=== PATIENT | male | born 1985 | race Hispanic/Latino ===

== ENCOUNTER 2018-05-24 09:45 | Emergency (ER) | payer SELFPAY ==
--- NOTE | 2018-05-24 11:24 | RAD REPORT ---
EXAM DESCRIPTION: RAD - Foot Right 3 View - 05/24/2018 10:59 am CLINICAL HISTORY: Pain;Swelling COMPARISON: No comparisons FINDINGS: Lucency is seen at the base of the right fourth metatarsal likely representing fracture. T here is also subtle widening of the intertarsal space between the base of the first and second metata rsals with subtle lucency at the base of the second metatarsal which could indicate Lisfranc fracture . Moderate soft tissue swelling is present along the dorsum of the forefoot. Findings were discussed with MALCOM Torres in the ER 11:12 a.m. 05/24/2018 by telephone.
--- NOTE | 2018-05-24 11:37 | ER ---
Nurse's Notes [facility] Name: Adolfo Franco Age: 33 yrs Sex: Male : 1985 Arrival Date: 05/24/2018 Time: 09:46 Bed 15 Private MD: None, None Diagnosis: Nondisplaced fracture of fourth metatarsal bone, right foot Presentation: 05/24 09:57 Presenting complaint: Patient states: R foot pain, injury, swelling and bruising that ss began 05/22/18 after patient believes somebody fell onto it during [place]. Pt doesn't quite remember the exact injury as he had been drinking. Transition of care: patient was not received from another setting of care. Onset of symptoms was May 22, 2018. Risk Assessment: Do you want to hurt yourself or someone else? Patient reports no desire to harm self or others. Initial Sepsis Screen: Does the patient meet any 2 criteria? No. Patient's initial sepsis screen is negative. Does the patient have a suspected source of infection? No. Patient's initial sepsis screen is negative. Care prior to arrival: None. 09:57 Method Of Arrival: Ambulatory ss 09:57 Acuity: MIKAELA 4 ss Historical: - Allergies: 09:58 No Known Allergies; ss - Home Meds: 09:58 None [Active]; ss - PMHx: 09:58 Anxiety; Asthma; Back pain; Seizures; ss - PSHx: 09:58 None; ss - Immunization history:: Adult Immunizations up to date. - Social history:: Smoking status: Patient uses tobacco products, denies chronic smoking, but will smoke occasionally. - Ebola Screening: : Patient denies exposure to infectious person Patient denies travel to an Ebola-affected area in the 21 days before illness onset. Screenin:26 Abuse screen: Denies threats or abuse. Denies injuries from another. Nutritional hb screening: No deficits noted. Tuberculosis screening: No symptoms or risk factors identified. Fall Risk None identified. Assessment: 10:22 General: Appears in no apparent distress. uncomfortable, Behavior is calm, cooperative. hb Pain: Pain currently is 8 out of 10 on a pain scale. Neuro: Level of Consciousness is awake, alert, obeys commands, Oriented to person, place, time, situation. Cardiovascular: Capillary refill < 3 seconds Patient's skin is warm and dry. RIGHT pedal pulses auscultated via doppler. Respiratory: Airway is patent Trachea midline Respiratory effort is even, unlabored, Respiratory pattern is regular, symmetrical. GI: No signs and/or symptoms were reported involving the gastrointestinal system. : No signs and/or symptoms were reported regarding the genitourinary system. EENT: No signs and/or symptoms were reported regarding the EENT system. Derm: Skin is intact, is healthy with good turgor. Musculoskeletal: bruising and moderate swelling noted to left foot, left ankle. 11:27 Reassessment: Patient appears in no apparent distress at this time. Patient and/or hb family updated on plan of care and expected duration. Pain level reassessed. Patient is alert, oriented x 3, equal unlabored respirations, skin warm/dry/pink. Vital Signs: 09:58 BP 133 / 90; Pulse 69; Resp 16; Temp 97.9(TE); Pulse Ox 99% on R/A; Weight 79.38 kg; ss Height 5 ft. 4 in. (162.56 cm); Pain 8/10; 11:27 BP 132 / 88; Pulse 66; Resp 15; Pulse Ox 100% on R/A; hb 09:58 Body Mass Index 30.04 (79.38 kg, 162.56 cm) ss ED Course: 09:46 Patient arrived in ED. sb2 09:46 None, None is Private Physician. sb2 09:58 Triage completed. ss 09:58 Arm band placed on right wrist. ss 10:03 [facility] Skelton [facility]C [facility]. kb 10:03 Cholo Sifuentes MD is Attending Physician. kb 10:22 Yue Melendez, ARSENIO is Primary Nurse. hb 10:26 Patient has correct armband on for positive identification. Bed in low position. Call hb light in reach. Side rails up X 1. 10:59 Foot Right 3 View XRAY In Process Unspecified. EDMS 11:02 X-ray completed. Portable x-ray completed in exam room. Patient tolerated procedure jb2 well. 11:50 Orthoglass splint: Posterior short lleg splint applied on right leg. capillary refill dh3 less than 3 seconds. 11:50 No provider procedures requiring assistance completed. Patient did not have IV access hb during this emergency room visit. Administered Medications: 11:58 Drug: [place] 10 mg-325 mg 1 tabs Route: PO; hb 11:58 Follow up: Response: Medication administered at discharge. hb Outcome: 11:37 Discharge ordered by . kb 11:50 Discharged to home ambulatory, with crutches. hb 11:50 Condition: stable 11:50 Discharge instructions given to patient, Instructed on discharge instructions, follow up and referral plans. medication usage, Demonstrated understanding of instructions, follow-up care, medications, Prescriptions given X 2. 11:59 Patient left the ED. hb Signatures: Dispatcher [employer] EDMS Torie Skelton, BUILDING CONSTRUCTION SUPERVISOR-C BUILDING CONSTRUCTION SUPERVISOR-CkHadley Jimenez2 Jade Navarro RN RN Yue Melendez RN RN Padma Wood 3 Marcy Chauhan2 Corrections: (The following items were deleted from the chart) 17:51 11:50 Discharge instructions given to patient, Instructed on discharge instructions, hb follow up and referral plans. medication usage, Demonstrated understanding of instructions, follow-up care, medications, Prescriptions given X 1, hb
--- NOTE | 2018-05-24 11:37 | EDPHYS ---
Physician Documentation [facility] Name: Adolfo Franco Age: 33 yrs Sex: Male : 1985 Arrival Date: 05/24/2018 Time: 09:46 Bed 15 Private MD: None, None ED Physician Cholo Sifuentes HPI: 05/24 10:20 This 33 yrs old Male presents to ER via Ambulatory with complaints of Foot kb Injury. 10:21 The patient presents with an injury, pain, that is acute, swelling, tenderness. The kb complaints affect the right foot. Context: The problem was sustained at home, the patient can partially bear weight, the patient is able to ambulate, with mild difficulty. Onset: The symptoms/episode began/occurred 2 day(s) ago. Modifying factors: The symptoms are alleviated by nothing, the symptoms are aggravated by weight bearing, movement. Associated signs and symptoms: Pertinent positives: swelling, Pertinent negatives: calf tenderness, fever, nausea, numbness, rash, tingling, vomiting, warmth, weakness. Severity of symptoms: At their worst the symptoms were moderate, in the emergency department the symptoms are unchanged. The patient has not experienced similar symptoms in the past. The patient has not recently seen a physician. Historical: - Allergies: 09:58 No Known Allergies; ss - Home Meds: 09:58 None [Active]; ss - PMHx: 09:58 Anxiety; Asthma; Back pain; Seizures; ss - PSHx: 09:58 None; ss - Immunization history:: Adult Immunizations up to date. - Social history:: Smoking status: Patient uses tobacco products, denies chronic smoking, but will smoke occasionally. - Ebola Screening: : Patient denies exposure to infectious person Patient denies travel to an Ebola-affected area in the 21 days before illness onset. ROS: 10:15 Constitutional: Negative for fever, chills, and weight loss, Cardiovascular: Negative kb for chest pain, palpitations, and edema, Respiratory: Negative for shortness of breath, cough, wheezing, and pleuritic chest pain, Abdomen/GI: Negative for abdominal pain, nausea, vomiting, diarrhea, and constipation, Skin: Negative for injury, rash, and discoloration, Neuro: Negative for headache, weakness, numbness, tingling, and seizure. 10:15 MS/extremity: Positive for injury or acute deformity, pain, swelling, tenderness, of the right foot. Exam: 10:15 Constitutional: This is a well developed, well nourished patient who is awake, alert, kb and in no acute distress. Head/Face: Normocephalic, atraumatic. Chest/axilla: Normal chest wall appearance and motion. Nontender with no deformity. No lesions are appreciated. Cardiovascular: Regular rate and rhythm with a normal S1 and S2. No gallops, murmurs, or rubs. Normal PMI, no JVD. No pulse deficits. Respiratory: Lungs have equal breath sounds bilaterally, clear to auscultation and percussion. No rales, rhonchi or wheezes noted. No increased work of breathing, no retractions or nasal flaring. Abdomen/GI: Soft, non-tender, with normal bowel sounds. No distension or tympany. No guarding or rebound. No evidence of tenderness throughout. Skin: Warm, dry with normal turgor. Normal color with no rashes, no lesions, and no evidence of cellulitis. Neuro: Awake and alert, GCS 15, oriented to person, place, time, and situation. Cranial nerves II-XII grossly intact. Motor strength 5/5 in all extremities. Sensory grossly intact. Cerebellar exam normal. Normal gait. 10:15 Musculoskeletal/extremity: Extremities: grossly normal except: noted in the right foot: pain, swelling, tenderness, ROM: no acute changes, Circulation is intact in all extremities. Sensation intact. Vital Signs: 09:58 BP 133 / 90; Pulse 69; Resp 16; Temp 97.9(TE); Pulse Ox 99% on R/A; Weight 79.38 kg; ss Height 5 ft. 4 in. (162.56 cm); Pain 8/10; 11:27 BP 132 / 88; Pulse 66; Resp 15; Pulse Ox 100% on R/A; hb 09:58 Body Mass Index 30.04 (79.38 kg, 162.56 cm) ss MDM: 10:03 Patient medically screened. kb 10:20 Data reviewed: vital signs, nurses notes. Data interpreted: Pulse oximetry: on room air kb is 99 %. Interpretation: normal. 11:35 Counseling: I had a detailed discussion with the patient and/or guardian regarding: the kb historical points, exam findings, and any diagnostic results supporting the discharge/admit diagnosis, radiology results, the need for outpatient follow up, a orthopedic surgeon, to return to the emergency department if symptoms worsen or persist or if there are any questions or concerns that arise at home. 05/24 10:14 Order name: Foot Right 3 View XRAY; Complete Time: 11:26 kb 05/24 11:28 Order name: Short Leg Splint; Complete Time: 11:55 kb 05/24 11:28 Order name: Crutches; Complete Time: 11:55 kb Administered Medications: 11:58 Drug: [place] 10 mg-325 mg 1 tabs Route: PO; 11:58 Follow up: Response: Medication administered at discharge. Disposition: 15:04 Co-signature as Attending Physician, Cholo Sifuentes MD I agree with the assessment and [facility] plan of care. Disposition: 05/24/18 11:37 Discharged to Home. Impression: Nondisplaced fracture of fourth metatarsal bone, right foot. - Condition is Stable. - Discharge Instructions: Metatarsal Fracture. - Prescriptions for Tylenol- Codeine #3 300-30 mg Oral Tablet - take 2 tablets by ORAL route every 6 hours As needed; 16 tablet. Diclofenac Sodium 75 mg Oral Tablet, Delayed Release (E.C.) - take 1 tablet by ORAL route 2 times per day As needed; 30 tablet. - Medication Reconciliation Form, Thank You Letter, Antibiotic Education, Prescription Opioid Use form. - Follow up: Emergency Department; When: As needed; Reason: Worsening of condition. Follow up: Private Physician; When: 2 - 3 days; Reason: Recheck today's complaints, Continuance of care, Re-evaluation by your physician. Signatures: Dispatcher [employer] [facility] Torie Skelton, MALCOM-C SECURITY MANAGER-Cholo Watkins MD MD cha Smirch, Shelby, RN RN ss Baxter, Heather, RN RN Corrections: (The following items were deleted from the chart) 11:59 11:37 05/24/2018 11:37 Discharged to Home. Impression: Nondisplaced fracture of fourth hb metatarsal bone, right foot. Condition is Stable. Forms are Medication Reconciliation Form, Thank You Letter, Antibiotic Education, Prescription Opioid Use. Follow up: Emergency Department; When: As needed; Reason: Worsening of condition. Follow up: Private Physician; When: 2 - 3 days; Reason: Recheck today's complaints, Continuance of care, Re-evaluation by your physician. kb
[2018-05-24] MEDS ORDERED: HYDROCODONE/APAP 10/325 TAB ONE (12:04)
[2018-05-24 12:24] VITALS: TEMP 97.9
[2018-05-24 12:25] VITALS: BP 132/88; O2SAT 100
== END 2018-05-24 11:59 | disposition home or self-care (01) ==
LOC: ER 09:45
DX: S92.341A Displaced fracture of fourth metatarsal bone, right foot, initial encounter for closed fracture (principal); X58.XXXA Exposure to other specified factors, initial encounter; Y92.9 Unspecified place or not applicable
CPT/HCPCS: 99284

== ENCOUNTER 2018-06-29 11:16 | Emergency (ER) | payer SELFPAY ==
--- NOTE | 2018-06-29 12:54 | ER ---
Nurse's Notes [facility] Name: Adolfo Franco Age: 33 yrs Sex: Male : 1985 Arrival Date: 06/29/2018 Time: 11:17 Bed 18 Private MD: Unknown, Unknown Diagnosis: Pain in right foot Presentation: 06/29 11:19 Presenting complaint: Patient states: this past May 24 or , i had a fractured R hj foot and was here for it; was told it will heal for 6 weeks, i need a work release form to get back to work; no other complaints;. Transition of care: patient was not received from another setting of care. Onset of symptoms was June 29, 2018. Risk Assessment: Do you want to hurt yourself or someone else? Patient reports no desire to harm self or others. Initial Sepsis Screen: Does the patient meet any 2 criteria? No. Patient's initial sepsis screen is negative. Does the patient have a suspected source of infection? No. Patient's initial sepsis screen is negative. Care prior to arrival: None. 11:19 Method Of Arrival: Ambulatory 11:19 Acuity: MIKAELA 5 hj Triage Assessment: 11:22 General: Appears in no apparent distress. uncomfortable, Behavior is calm, cooperative, hj appropriate for age. Pain: Complains of pain in right foot. Musculoskeletal: Reports pain in right foot. 13:02 Injury Description: Bruise sustained to right foot. bp Historical: - Allergies: 11:21 No Known Allergies; hj - Home Meds: 11:21 acetaminophen-codeine 300-60 mg Oral tab 1 tab every 6 hours for Pain [Active]; hj naproxen 500 mg Oral TbEC 1 tab 2 times per day [Active]; prednisone 20 mg Oral tab once daily [Active]; - PMHx: 11:21 Anxiety; Asthma; Back pain; Seizures; hj - PSHx: 11:21 None; hj - Immunization history:: Adult Immunizations up to date. - Social history:: Smoking status: Patient uses tobacco products, Patient uses alcohol. - Ebola Screening: : Patient negative for fever greater than or equal to 101.5 degrees Fahrenheit, and additional compatible Ebola Virus Disease symptoms Patient denies exposure to infectious person Patient denies travel to an Ebola-affected area in the 21 days before illness onset. Screenin:22 Abuse screen: Denies threats or abuse. Denies injuries from another. Nutritional hj screening: No deficits noted. Tuberculosis screening: No symptoms or risk factors identified. Fall Risk None identified. Assessment: 12:30 General: Appears in no apparent distress. comfortable, Behavior is calm, cooperative, bp appropriate for age. Pain: Complains of pain in right foot. Neuro: Level of Consciousness is awake, alert, obeys commands, Oriented to person, place, time, situation, Appropriate for age. Cardiovascular: No deficits noted. Respiratory: No deficits noted. GI: No signs and/or symptoms were reported involving the gastrointestinal system. : No signs and/or symptoms were reported regarding the genitourinary system. EENT: No deficits noted. Derm: No deficits noted. Musculoskeletal: Circulation, motion, and sensation intact. Range of motion: intact in all extremities. 13:01 Reassessment: PT MED SCREENED BY JOSEPHINE. bp Vital Signs: 11:22 BP 135 / 99; Pulse 74; Resp 18; Temp 98.3(TE); Pulse Ox 97% on R/A; Weight 79.38 kg; hj Height 5 ft. 4 in. (162.56 cm); Pain 4/10; 11:22 Body Mass Index 30.04 (79.38 kg, 162.56 cm) ED Course: 11:17 Patient arrived in ED. ag5 11:18 Unknown, Unknown is Private Physician. ag5 11:21 Triage completed. hj 11:22 Arm band placed on right wrist. hj 11:22 Patient has correct armband on for positive identification. Bed in low position. Call hj light in reach. Side rails up X 1. 12:31 Jet Higuera, ARSENIO is Primary Nurse. bp 12:34 Cholo Campos PA is PHCP. cp 12:35 Horace Anand MD is Attending Physician. cp 12:52 Jimbo Haider MD is Referral Physician. cp 13:02 No provider procedures requiring assistance completed. Patient did not have IV access bp during this emergency room visit. Administered Medications: No medications were administered Outcome: 12:53 Discharge ordered by . cp 13:02 Medical screen evaluation completed per provider. Patient declined treatment. bp 13:02 Condition: stable 13:02 Instructed on follow up and referral plans. 13:03 Patient left the ED. bp Signatures: Arnaldo Ma RN RN Cholo Pedro PA PA cp Peltier, Brian, RN RN bp Gaskin, Ajare ag5 Corrections: (The following items were deleted from the chart) 11:19 Acuity: MIKAELA 4 hj hj 11:22 Resp 18bpm; Pulse Ox 97% RA; Temp 98.3F Temporal; 79.38 kg; Height 5 ft. 4 in.; hj BMI: 30.0; Pain 4/10; hj
--- NOTE | 2018-06-29 12:54 | EDPHYS ---
Physician Documentation [facility] Name: Adolfo Franco Age: 33 yrs Sex: Male : 1985 Arrival Date: 06/29/2018 Time: 11:17 Bed 18 Private MD: Unknown, Unknown ED Physician Horace Anand HPI: 06/29 12:47 This 33 yrs old Male presents to ER via Ambulatory with complaints of Foot cp Injury. 12:47 The patient presents with pain, that is acute. The complaints affect the dorsum of cp right foot. Context: resulted from known fracture. Onset: The symptoms/episode began/occurred last month, [place]. Associated signs and symptoms: Pertinent negatives calf tenderness, numbness, warmth. Treatment prior to arrival includes: no previous treatment. Historical: - Allergies: 11:21 No Known Allergies; hj - Home Meds: 11:21 acetaminophen-codeine 300-60 mg Oral tab 1 tab every 6 hours for Pain [Active]; hj naproxen 500 mg Oral TbEC 1 tab 2 times per day [Active]; prednisone 20 mg Oral tab once daily [Active]; - PMHx: 11:21 Anxiety; Asthma; Back pain; Seizures; hj - PSHx: 11:21 None; hj - Immunization history:: Adult Immunizations up to date. - Social history:: Smoking status: Patient uses tobacco products, Patient uses alcohol. - Ebola Screening: : Patient negative for fever greater than or equal to 101.5 degrees Fahrenheit, and additional compatible Ebola Virus Disease symptoms Patient denies exposure to infectious person Patient denies travel to an Ebola-affected area in the 21 days before illness onset. ROS: 12:48 Eyes: Negative for injury, pain, redness, and discharge. cp 12:48 Constitutional: Negative for body aches, chills, fever, poor PO intake. 12:48 ENT: Negative for drainage from ear(s), ear pain, sore throat, difficulty swallowing, difficulty handling secretions. 12:48 Respiratory: Negative for cough, shortness of breath, wheezing. 12:48 Abdomen/GI: Negative for abdominal pain, nausea, vomiting, and diarrhea. 12:48 MS/extremity: Positive for pain, tenderness, of the dorsum of right foot, Negative for decreased range of motion, deformity, paresthesias. 12:48 Skin: Negative for cellulitis, rash. 12:48 Neuro: Negative for altered mental status, headache, weakness. 12:48 All other systems are negative. Exam: 12:49 Head/Face: Normocephalic, atraumatic. cp 12:49 Constitutional: The patient appears in no acute distress, alert, awake, non-toxic, well developed, well nourished. 12:49 Eyes: Periorbital structures: appear normal, Conjunctiva: normal, no exudate, no injection, Lids and lashes: appear normal, bilaterally. 12:49 ENT: External ear(s): are unremarkable, Nose: is normal, Mouth: Lips: moist, Oral mucosa: moist, Posterior pharynx: Airway: no evidence of obstruction, patent. 12:49 Chest/axilla: Inspection: normal. 12:49 Cardiovascular: Rate: normal, Rhythm: regular. 12:49 Respiratory: the patient does not display signs of respiratory distress, Respirations: normal, no use of accessory muscles, no retractions, no splinting, no tachypnea. 12:49 Musculoskeletal/extremity: Extremities: grossly normal except: noted in the dorsum of right foot: pain, swelling, tenderness, Perfusion: the extremity is normally perfused throughout, Sensation intact. 12:49 Skin: cellulitis, is not appreciated, no rash present. Vital Signs: 11:22 BP 135 / 99; Pulse 74; Resp 18; Temp 98.3(TE); Pulse Ox 97% on R/A; Weight 79.38 kg; hj Height 5 ft. 4 in. (162.56 cm); Pain 4/10; 11:22 Body Mass Index 30.04 (79.38 kg, 162.56 cm) hj MDM: 12:35 Patient medically screened. cp 12:45 Differential diagnosis: dislocation, closed fracture, contusion. cp 12:52 Data reviewed: vital signs, nurses notes. cp Administered Medications: No medications were administered Disposition: 06/30 12:40 Co-signature as Attending Physician, Horace Anand MD I agree with the assessment and wa plan of care. Disposition: 06/29/18 12:53 Discharged to Home as Medical Screen. Impression: Pain in right foot. - Condition is Stable. - Discharge Instructions: Foot Pain. - Medication Reconciliation Form, Thank You Letter, Antibiotic Education, Prescription Opioid Use form. - Follow up: Jimbo Haider MD; When: 1 - 2 days; Reason: right foot pain. - Problem is an ongoing problem. - Symptoms are unchanged. Signatures: Dispatcher [employer] [facility] Arnaldo Ma, RN RN Cholo Pedro PA PA cp Horace Anand MD MD wa Peltier, Brian, RN RN bp Corrections: (The following items were deleted from the chart) 02 12:54 12:53 06/29/2018 12:53 Discharged to Home. Impression: Pain in right foot. Condition is cp Stable. Forms are Medication Reconciliation Form, Thank You Letter, Antibiotic Education, Prescription Opioid Use. Follow up: Dr. Jimbo Haider; When: 1 - 2 days; Reason: right foot pain. Problem is an ongoing problem. Symptoms are unchanged. cp 12:55 12:38 Foot Right 3 View+RAD.RAD.BRZ ordered. [facility] EDTX 13:03 12:54 06/29/2018 12:53 Discharged to Home as Medical Screen. Impression: Pain in right bp foot. Condition is Stable. Discharge Instructions: Foot Pain. Forms are Medication Reconciliation Form, Thank You Letter, Antibiotic Education, Prescription Opioid Use. Follow up: Dr. Jimbo Haider; When: 1 - 2 days; Reason: right foot pain. Problem is an ongoing problem. Symptoms are unchanged. cp
[2018-06-29 13:08] VITALS: BP 135/99; TEMP 98.3; O2SAT 97
== END 2018-06-29 13:03 | disposition home or self-care (01) ==
LOC: ER 11:16
DX: M79.671 Pain in right foot (principal); F41.9 Anxiety disorder, unspecified; J45.909 Unspecified asthma, uncomplicated; Z72.0 Tobacco use
CPT/HCPCS: 99281